=== PATIENT | male | born 1940 | race Caucasian/White ===

== ENCOUNTER 2018-05-04 07:37 | Day surgery (SDC) | payer MEDICARE, BC ==
[~2018-05-04 07:37] MED LIST: Lactated Ringers 1,000 ML IV SCH; Sodium Chloride 0.9% 10 ML Syringe FLUSH PRN
[2018-05-04] MEDS ORDERED: Propofol 200 MG/20 ML SDV ONE ×2 (09:42→11:16)
[2018-05-04] MEDS ORDERED: Midazolam 1 MG/ML 2 ML SDV ONE ×2 (09:42→11:16)
[2018-05-04] MEDS ORDERED: fentaNYL 100 MCG/2 ML SDV ONE ×2 (09:42→11:16)
--- NOTE | 2018-05-04 11:22 | PCM.PN ---
- General Info Date of Service: 05/04/18 - Review of Systems Systems Review Comment:: 78-year-old male here for surveillance colonoscopy. His last colonoscopy was 3 years ago. He has a history of colon polyps. He is medically stabe to proceed with colonoscopy today. His recent history and physical is reviewed and no significant changes are noted. I have discussed the proposed colonoscopy with the patient. He agrees to proceed accepting risks. - Patient Data Vitals - Most Recent: Last Vital Signs Temp 97.6 F 05/04/18 07:54 Pulse 69 05/04/18 07:54 Resp 20 05/04/18 07:54 BP 163/76 H 05/04/18 07:54 Pulse Ox 98 05/04/18 07:54 Weight - Most Recent: 103.873 kg Lab Results Last 24 Hours: Laboratory Results - last 24 hr 05/04/18 Range/Units 08:18 POC Glucose 118 H (65-110) mg/dl Med Orders - Current: Current Medications Lactated Ringer's (Ringers, Lactated) 1,000 mls @ 125 mls/hr IV ASDIRECTED [place] Sodium Chloride (Saline Flush) 10 ml FLUSH ASDIRECTED PRN PRN Reason: Keep Vein Open Discontinued Medications Fentanyl (Sublimaze) Confirm Administered Dose 100 mcg .ROUTE .STK-MED ONE Stop: 05/04/18 09:43 Midazolam HCl (Versed 1 Mg/Ml) Confirm Administered Dose 2 mg .ROUTE .STK-MED ONE Stop: 05/04/18 09:43 Propofol (Diprivan 20 Ml) Confirm Administered Dose 400 mg .ROUTE .STK-MED ONE Stop: 05/04/18 09:43 - Problem List Review Problem List Initiated/Reviewed/Updated: Yes - Assessment Assessment:: History of Colon Polyps - Plan Plan:: Colonoscopy
--- NOTE | 2018-05-04 12:09 | PCM.OPNOTE ---
- General Post-Op/Procedure Note Date of Surgery/Procedure: 05/04/18 Operative Procedure(s): Colonoscopy with Polypectomy Findings: Multiple small polyps Extensive Sigmoid Diverticulosis Thrombosed Hemorrhoids Pre Op Diagnosis: history of colon polyps Post-Op Diagnosis: Colon Polyps. Sigmoid Diverticulosis. Hemorrhoids Anesthesia Technique: MAC Primary Surgeon: Keegan Benoit Pathology: Colon polyps Output, Urine Amount: 0 EBL in mLs: 0 Complications: None Condition: Good Free Text/Narrative:: Intake & Output 05/03/18 05/04/18 05/04/18 22:59 06:59 14:59 Intake Total 900 Balance 900
[2018-05-04 13:14] VITALS: BP 121/52
--- NOTE | 2018-05-04 20:25 | OR ---
Date of Procedure: 05/04/2018 PREOPERATIVE DIAGNOSIS: History of colon polyps. POSTOPERATIVE DIAGNOSES: Multiple colon polyps, sigmoid diverticulosis, thrombosed hemorrhoids. OPERATIONS PERFORMED: Colonoscopy with polypectomy and polyp ablation. INDICATIONS FOR SURGERY: This 78-year-old male has history of colon polyps. He comes for surveillance colonoscopy. FINDINGS: Four polyps were noted during today's exam. There are 2 polyps which are 6 to 7 mm in size noted in the mid transverse colon and at the hepatic flexure. There are 2 polyps which are 2 to 3 mm in size noted in the ascending colon and transverse colon. The patient also has extensive sigmoid diverticulosis with multiple diverticula. All of these do not appear to be acutely inflamed, otherwise complicated at this time. In addition to this, the patient has two firm external hemorrhoids on his left side, which appear mildly thrombosed. DESCRIPTION OF PROCEDURE: The patient was taken to the operating room. He was given intravenous sedation and with him in the left lateral decubitus position, digital rectal exam was performed. The thrombosed hemorrhoids were noted, but no other rectal masses were identified. The scope was then carefully advanced into the rectum and retroflexed examination of the rectal canal was performed. The scope was then advanced under direct visualization through the entire length of the colon until the cecum was reached. Cecal acquisition was confirmed by noting the normal internal cecal anatomy including the appendiceal orifice and ileocecal valve and the light was also noted to transilluminate the abdominal wall in the right lower quadrant. After examining the cecum, the scope was slowly withdrawn sequentially re-examining the colonic segments. During insertion and withdrawal of the scope, the above-described polyps were identified. The two larger polyps were removed with a cautery snare and retrieved into a polyp trap. These will be submitted for pathology. The two smaller polyps were destroyed with the cautery using the snare. With no sign of any complication and after all of the colon and rectum had been fully examined, the scope was removed and the patient was taken from the operating room in satisfactory condition. ESTIMATED BLOOD LOSS: Zero. COMPLICATIONS: None. PROGNOSIS: Good. JENNA Benoit MD /[id number]
== END 2018-05-04 13:00 | disposition home or self-care (01) ==
LOC: LL.SDS 07:37
PROVIDERS: ATTEND Surgery
DX: Z12.11 Encounter for screening for malignant neoplasm of colon (principal); D12.3 Benign neoplasm of transverse colon; K64.5 Perianal venous thrombosis; K57.30 Diverticulosis of large intestine without perforation or abscess without bleeding; I10 Essential (primary) hypertension; E11.9 Type 2 diabetes mellitus without complications; E78.5 Hyperlipidemia, unspecified; Z86.010 Personal history of colon polyps; Z79.84 Long term (current) use of oral hypoglycemic drugs; Z79.82 Long term (current) use of aspirin; Z79.899 Other long term (current) drug therapy; Z80.0 Family history of malignant neoplasm of digestive organs
CPT/HCPCS: 45385; 82962; J2250; J2704; J3010; J7120; 00812

== ENCOUNTER → 2019-07-06 | Outpatient (CLI) | payer MEDICARE, BC | LOC: LL.LAB 15:13 | PROVIDERS: ATTEND Family Medicine | DX: M54.5 Low back pain (principal); M25.551 Pain in right hip; M25.561 Pain in right knee; I10 Essential (primary) hypertension; M16.11 Unilateral primary osteoarthritis, right hip; M25.851 Other specified joint disorders, right hip; M17.11 Unilateral primary osteoarthritis, right knee; M51.36 Other intervertebral disc degeneration, lumbar region; M47.816 Spondylosis without myelopathy or radiculopathy, lumbar region; I70.0 Atherosclerosis of aorta | CPT/HCPCS: 36415; 72110; 73562-RT; 82565 ==

== ENCOUNTER → 2019-07-09 | Outpatient (CLI) | payer MEDICARE, BC | LOC: LL.MRI 10:46 | PROVIDERS: ATTEND Family Medicine | DX: M47.26 Other spondylosis with radiculopathy, lumbar region (principal) | CPT/HCPCS: 72148 ==

== ENCOUNTER 2024-02-07 21:01 | Emergency (ER) | payer MEDICARE, BC ==
[2024-02-07 22:40] VITALS: PULSE 84
[2024-02-07 22:47] LABS: BASOPHILS ABSOLUTE AUTO 0.07 K/uL (0.00-0.20); BASOPHILS PERCENT AUTO 0.7 % (0.0-2.0); EOSINOPHILS ABSOLUTE AUTO 0.25 K/uL (0.00-0.50); EOSINOPHILS PERCENT AUTO 2.4 % (0.0-5.0); HEMATOCRIT 38.4 % (39.0-49.0); HEMOGLOBIN 12.7 g/dL (13.1-16.8); LYMPHOCYTES ABSOLUTE AUTO 1.83 K/uL (0.50-3.50); LYMPHOCYTES PERCENT AUTO 17.5 % (10.0-50.0); MEAN CORPUSCULAR HEMOGLOBIN 29.7 pg (28.2-33.3); MEAN CORPUSCULAR HGB CONC 33.1 g/dL (31.7-36.0); MEAN CORPUSCULAR VOLUME 89.7 fL (84.0-98.0); MONOCYTES ABSOLUTE AUTO 0.76 K/uL (0.00-1.00); MONOCYTES PERCENT AUTO 7.3 % (2.0-14.0); NEUTROPHILS ABSOLUTE AUTO 7.55 K/uL (1.40-7.00); NEUTROPHILS PERCENT AUTO 72.1 % (45.0-80.0); PLATELET COUNT,PLT 247 K/uL (150-350); RED BLOOD CELL COUNT 4.28 M/uL (4.33-5.41); RED CELL DISTRIBUTION WIDTH 14.1 % (11.2-14.1); WHITE BLOOD CELL COUNT,WBC 10.5 K/uL (4.0-10.2)
[2024-02-07 23:14] VITALS: BP 128/96
[2024-02-07 23:14] LABS: ALANINE AMINOTRANSFERASE,ALT 14 U/L (12-78); ALBUMIN 3.8 g/dL (3.4-5.0); ALKALINE PHOSPHATASE 51 IU/L (46-116); ANION GAP 11.3 meq/L (7-15); ASPARTATE AMNIOTRANSFERASE,AST 16 U/L (15-37); BILIRUBIN TOTAL 0.4 mg/dL (0.2-1.0); BLOOD UREA NITROGEN,BUN 43 mg/dL (7-18); CALCIUM 9.1 mg/dL (8.5-10.1); CARBON DIOXIDE,CO2 22.7 mmol/L (21.0-32.0); CHLORIDE,CL 107 mmol/L (98-107); CREATININE 2.28 mg/dL (0.51-1.17); GLUCOSE RANDOM 117 mg/dL (70-99); MAGNESIUM 2.2 mg/dL (1.8-2.4); POTASSIUM,K 4.3 mmol/L (3.5-5.1); PROTEIN TOTAL,TP 7.1 g/dL (6.4-8.2); SODIUM,NA 141 mmol/L (136-145)
[2024-02-07 23:15] LABS: ESTIMATED GFR 28 mL/min (>=60)
== END 2024-02-07 23:45 | disposition home or self-care (01) ==
LOC: LL.ED 21:01
DX: R56.9 Unspecified convulsions (principal); R55 Syncope and collapse; I10 Essential (primary) hypertension; E78.00 Pure hypercholesterolemia, unspecified; E11.9 Type 2 diabetes mellitus without complications; Z88.8 Allergy status to other drugs, medicaments and biological substances; Z79.82 Long term (current) use of aspirin; Z79.4 Long term (current) use of insulin; Z79.899 Other long term (current) drug therapy; Z90.49 Acquired absence of other specified parts of digestive tract; Z87.891 Personal history of nicotine dependence
CPT/HCPCS: 36415; 70450; 80053; 82947; 83605; 83735; 85025; 93005; 93010; 99284; 99285

== ENCOUNTER 2024-03-07 12:13 | Emergency (ER) | payer MEDICARE, BC ==
[2024-03-07] MEDS ORDERED: Sodium Chloride 0.9% 10 ML Syringe FLUSH PRN (12:15)
[2024-03-07 12:19] VITALS: BP 139/73; PULSE 86
[2024-03-07 12:26] LABS: BASOPHILS ABSOLUTE AUTO 0.05 K/uL (0.00-0.20); BASOPHILS PERCENT AUTO 0.6 % (0.0-2.0); EOSINOPHILS ABSOLUTE AUTO 0.26 K/uL (0.00-0.50); HEMOGLOBIN 12.5 g/dL (13.1-16.8); LYMPHOCYTES PERCENT AUTO 14.8 % (10.0-50.0); MEAN CORPUSCULAR HEMOGLOBIN 29.3 pg (28.2-33.3); MEAN CORPUSCULAR HGB CONC 32.9 g/dL (31.7-36.0); MEAN CORPUSCULAR VOLUME 89.2 fL (84.0-98.0); MONOCYTES ABSOLUTE AUTO 0.62 K/uL (0.00-1.00); MONOCYTES PERCENT AUTO 7.1 % (2.0-14.0); NEUTROPHILS ABSOLUTE AUTO 6.56 K/uL (1.40-7.00); NEUTROPHILS PERCENT AUTO 74.5 % (45.0-80.0); PLATELET COUNT,PLT 262 K/uL (150-350); RED BLOOD CELL COUNT 4.26 M/uL (4.33-5.41); RED CELL DISTRIBUTION WIDTH 13.7 % (11.2-14.1); WHITE BLOOD CELL COUNT,WBC 8.8 K/uL (4.0-10.2)
[2024-03-07 12:59] LABS: ALBUMIN 4.1 g/dL (3.4-5.0); BILIRUBIN TOTAL 0.4 mg/dL (0.2-1.0); CALCIUM 9.4 mg/dL (8.5-10.1); CREATININE 2.32 mg/dL (0.51-1.17); EST CRCL DRUG DOSING (CG) 26.79 mL/min; MAGNESIUM 2.2 mg/dL (1.8-2.4); POTASSIUM,K 4.2 mmol/L (3.5-5.1); PROTEIN TOTAL,TP 7.1 g/dL (6.4-8.2)
== END 2024-03-07 13:53 ==
LOC: LL.ED 12:13
DX: R40.4 Transient alteration of awareness (principal); I10 Essential (primary) hypertension; E78.00 Pure hypercholesterolemia, unspecified; Z90.49 Acquired absence of other specified parts of digestive tract; Z79.82 Long term (current) use of aspirin; Z79.899 Other long term (current) drug therapy; Z88.8 Allergy status to other drugs, medicaments and biological substances
CPT/HCPCS: 36415; 71045; 80053; 82947; 83605; 83735; 83880; 84484; 85025; 85379; 93005; 99285

== ENCOUNTER 2024-03-15 12:11 | Inpatient (IN) | payer MEDICARE, BC ==
[2024-03-15] MEDS ORDERED: Lisinopril 20 MG Tab PO SCH (18:00)
[2024-03-15] MEDS: atorvaSTATin 20 MG Tab PO SCH (19:48)
[2024-03-15] MEDS: Fenofibrate,Micronized 134 MG Cap PO SCH (19:48)
[2024-03-16] MEDS: Magnesium Oxide 400 MG Tab PO SCH (08:23)
[2024-03-16] MEDS: Lutein/Minerals/Vitamin C/Vitamin E Acetate Cap PO SCH (08:23)
[2024-03-16] MEDS: Cranberry 500 MG Cap PO SCH (08:23)
[2024-03-16] MEDS: Acetaminophen 325 MG Tab PO PRN (08:24)
[2024-03-16] MEDS: Multivitamin Tab PO SCH (08:24)
[2024-03-16] MEDS: Sertraline 25 MG Tab PO SCH (08:24)
[2024-03-16] MEDS: amLODIPine 5 MG Tab PO SCH (09:30)
[2024-03-16] MEDS: Aspirin 81 MG Tab.Chew PO SCH (10:09)
[2024-03-16] MEDS: Lisinopril 20 MG Tab PO SCH (10:14)
[2024-03-16] MEDS: Metoprolol Succinate 50 MG Tab.ER PO SCH (10:30)
[2024-03-17] MEDS: amLODIPine 5 MG Tab PO SCH (11:59)
[2024-03-17] MEDS: Calcium Carbonate 500 MG Tab.Chew PO PRN (20:57)
[2024-03-17] MEDS: Melatonin 3 MG Tab PO PRN (20:58)
[2024-03-18] MEDS: Metoprolol Succinate 25 MG Tab.ER PO SCH (10:17)
[2024-03-19 07:56] LABS: CALCIUM 8.6 mg/dL (8.5-10.1); CARBON DIOXIDE,CO2 26.6 mmol/L (21.0-32.0); CREATININE 2.13 mg/dL (0.51-1.17); EST CRCL DRUG DOSING (CG) 29.48 mL/min; MAGNESIUM 2.1 mg/dL (1.8-2.4); POTASSIUM,K 5.1 mmol/L (3.5-5.1)
[2024-03-19 08:09] LABS: ANION GAP 12.5 meq/L (7-15)
[2024-03-20] MEDS: Metoprolol Succinate 50 MG Tab.ER PO SCH (08:05)
[2024-03-20] MEDS: Lisinopril 10 MG Tab PO SCH (08:06)
[2024-03-21] MEDS: Metoprolol Succinate 25 MG Tab.ER PO ONE (09:02)
[2024-03-22 08:01] LABS: CALCIUM 8.8 mg/dL (8.5-10.1); CREATININE 2.11 mg/dL (0.51-1.17); EST CRCL DRUG DOSING (CG) 29.76 mL/min; POTASSIUM,K 4.5 mmol/L (3.5-5.1)
[2024-03-22 08:14] LABS: ANION GAP 13.5 meq/L (7-15)
[2024-03-26 07:46] VITALS: PULSE 53
[2024-03-26 13:14] VITALS: BP 131/56
== END 2024-03-26 13:40 | disposition home or self-care (01) | DRG 950 ==
LOC: LL.MS 12:28
PROVIDERS: ADMIT Emergency Medicine; ATTEND Nurse Practitioner Family
DX: Z48.812 Encounter for surgical aftercare following surgery on the circulatory system (principal); N18.30 Chronic kidney disease, stage 3 unspecified; I12.9 Hypertensive chronic kidney disease with stage 1 through stage 4 chronic kidney disease, or unspecified chronic kidney disease; E78.00 Pure hypercholesterolemia, unspecified; Z96.649 Presence of unspecified artificial hip joint; N40.0 Benign prostatic hyperplasia without lower urinary tract symptoms; E11.22 Type 2 diabetes mellitus with diabetic chronic kidney disease; Z95.0 Presence of cardiac pacemaker; Z79.4 Long term (current) use of insulin; Z88.8 Allergy status to other drugs, medicaments and biological substances; Z90.89 Acquired absence of other organs; Z90.49 Acquired absence of other specified parts of digestive tract; Z87.442 Personal history of urinary calculi; Z87.891 Personal history of nicotine dependence
CPT/HCPCS: 36415; 80048; 83735; 93005; 97161-GP; 97165-GO; 97530-GO; 97535-GO; A9270-GY